=== PATIENT | female | born 1990 | race African-American/Black ===

== ENCOUNTER 2017-12-26 12:40 | Emergency (ER) | payer OTHER ==
[~2017-12-26] VITALS: Ht 154.9 cm; Wt 66.4 kg
[2017-12-26 12:58] VITALS: BP 116/88; Ht 154.9 cm; Wt 66.4 kg
== END 2017-12-26 14:25 | disposition left against medical advice (07) ==
LOC: ED 12:40
DX: R06.00 Dyspnea, unspecified (principal); Z98.84 Bariatric surgery status